=== PATIENT | female | born 1940 | race Two or more races ===

== ENCOUNTER 2018-11-22 08:27 | Emergency (ER) | payer MEDICARE, OTHER ==
[~2018-11-22] VITALS: Ht 157.5 cm; Wt 77.1 kg
[~2018-11-22 08:27] MED LIST: LEVOTHYROXINE
[2018-11-22] MEDS ORDERED: LEVOFLOXACIN 500MG 100 ML IV ONE (09:30)
[2018-11-22 10:24] LABS: Basophils # (auto) 0.1 uL; Basophils % (auto) 0.7 % (0.0-2.0); Eosinophils # (auto) 0 uL; Eosinophils % (auto) 0.4 % (0.0-7.0); Hematocrit 38.7 % (36.0-46.0); Hemoglobin 12.7 g/dL (12.2-16.2); Lymphocytes # (auto) 0.9 uL; Lymphocytes % (auto) 11.1 % (10.0-50.0); Mean Corpuscular Hemoglobin 29.8 pg (28.0-32.0); Mean Corpuscular Hgb Conc. 32.8 g/dL (32.0-36.0); Mean Corpuscular Volume 90.8 fL (80.0-100.0); Monocytes # (auto) 0.7 uL; Monocytes % (auto) 8.5 % (0.0-12.0); Neutrophils # (auto) 6.5 uL; Neutrophils % (auto) 79.3 % (37.0-80.0); Platelet Count (auto) 289 10^3/uL (140-450); Red Blood Cells 4.26 10^6/uL (4.0-5.20); Red Cell Distribution Width 14.8 % (11.8-14.3); White Blood Cell 8.3 10^3/uL (4.4-10.8)
[2018-11-22 10:44] LABS: Alanine Aminotransferase 20 U/L (13-56); Albumin 3.1 g/dL (3.4-5.0); Anion Gap 9 (5-15); Aspartate Aminotransferase 20 U/L (15-37); BUN/Creatinine Ratio 15.8; Blood Urea Nitrogen 9 mg/dL (7-18); Calcium 8.1 mg/dL (8.5-10.1); Carbon Dioxide 26 mmol/L (21-32); Chloride 104 mmol/L (98-107); GFR African American 132 mL/min; GFR Non-African American 109 mL/min; Glucose 87 mg/dL (74-106); Magnesium 2.5 mg/dL (1.6-2.6); Potassium 3.7 mmol/L (3.5-5.1); Sodium 139 mmol/L (136-145)
[2018-11-22 10:52] LABS: Alkaline Phosphatase 69 U/L (45-117); Bilirubin, Total 0.3 mg/dL (0.2-1.0); Total Protein 7.3 g/dL (6.4-8.2)
[2018-11-22 12:58] VITALS: BP 122/57
[2018-11-22 12:58] LABS: Urine Bacteria NONE SEEN /hpf (None Seen); Urine Blood Negative /uL (Negative); Urine Specific Gravity 1.008 (1.001-1.035); Urine WBC <1 /hpf (0 - 5)
== END 2018-11-22 13:03 | disposition home or self-care (01) ==
LOC: EDBD 08:27 → ER 08:27
DX: J40 Bronchitis, not specified as acute or chronic (principal); I10 Essential (primary) hypertension; Z90.49 Acquired absence of other specified parts of digestive tract; Z90.710 Acquired absence of both cervix and uterus
CPT/HCPCS: 36415; 71045; 80053; 81001; 83735; 84484; 85025; 87040; 87804; 93005; 94761; 96365; 99284; J1956

== ENCOUNTER 2020-02-14 17:44 | Emergency (ER) | payer OTHER ==
[~2020-02-14] VITALS: Ht 160 cm; Wt 81.6 kg
[2020-02-14 18:23] LABS: Basophils # (auto) 0 10 ^3/uL (0-0.2); Basophils % (auto) 0.9 % (0.0-2.0); Eosinophils # (auto) 0 10 ^3/uL (0-0.8); Eosinophils % (auto) 0.3 % (0.0-7.0); Hematocrit 36.9 % (36.0-46.0); Hemoglobin 12.4 g/dL (12.2-16.2); Lymphocytes # (auto) 1.4 10 ^3/uL (0.4-5.4); Mean Corpuscular Hgb Conc. 33.6 g/dL (32.0-36.0); Mean Corpuscular Volume 89.5 fL (80.0-100.0); Monocytes # (auto) 0.4 10 ^3/uL (0-1.3); Neutrophils # (auto) 3.5 10 ^3/uL (1.6-8.6); Neutrophils % (auto) 64.8 % (37.0-80.0); Platelet Count (auto) 300 10^3/uL (140-450); Red Blood Cells 4.12 10^6/uL (4.0-5.20); Red Cell Distribution Width 14.6 % (11.8-14.3); White Blood Cell 5.4 10^3/uL (4.4-10.8)
[2020-02-14] MEDS ORDERED: SODIUM CHLORIDE 0.9% 1,000 ML IV ONE (18:30)
[2020-02-14] MEDS ORDERED: dilTIAZem 25 MG/5 ML VIAL IV ONE (18:30)
[2020-02-14 18:35] LABS: INR 1.05 (0.9-1.15); Partial Thromboplastin Time 28.2 sec (23.64-32.05)
[2020-02-14 18:44] LABS: Alanine Aminotransferase 24 U/L (13-56); Albumin 3.3 g/dL (3.4-5.0); Anion Gap 6 (5-15); Blood Urea Nitrogen 9 mg/dL (7-18); Calcium 8.6 mg/dL (8.5-10.1); Carbon Dioxide 25 mmol/L (21-32); Chloride 97 mmol/L (98-107); GFR African American 143 mL/min; GFR Non-African American 118 mL/min; Glucose 145 mg/dL (74-106); Magnesium 2.3 mg/dL (1.6-2.6); Potassium 3.7 mmol/L (3.5-5.1); Sodium 128 mmol/L (136-145)
[2020-02-14 18:49] LABS: Alkaline Phosphatase 63 U/L (45-117); Aspartate Aminotransferase 18 U/L (15-37); Bilirubin, Total 0.2 mg/dL (0.2-1.0); Total Protein 7.5 g/dL (6.4-8.2)
[2020-02-15 01:05] VITALS: BP 157/71
== END 2020-02-15 02:15 | disposition home or self-care (01) ==
LOC: EDBD 17:44 → EDUNIT# 17:44 → ER 17:44
DX: I48.92 Unspecified atrial flutter (principal); E87.1 Hypo-osmolality and hyponatremia; I10 Essential (primary) hypertension
CPT/HCPCS: 36415; 71045; 80053; 83735; 83880; 84443; 84484; 85025; 85610; 85730; 93005

== ENCOUNTER 2021-05-28 17:51 | Emergency (ER) | payer OTHER ==
[~2021-05-28] VITALS: Ht 152.4 cm; Wt 68.0 kg
[2021-05-28 19:25] VITALS: BP 184/88
[2021-05-28 19:51] LABS: Urine Bacteria FEW /hpf (None Seen); Urine Blood Negative /uL (Negative); Urine Specific Gravity 1.011 (1.001-1.035); Urine WBC 2 /hpf (0 - 5)
== END 2021-05-28 20:14 | disposition home or self-care (01) ==
LOC: ER 17:51 → MERGE 17:51 → EDSEX 17:51 → EDBD 17:51 → ER 20:14
DX: N39.0 Urinary tract infection, site not specified (principal); M54.5 Low back pain; Z88.0 Allergy status to penicillin; Z88.5 Allergy status to narcotic agent
CPT/HCPCS: 81001

== ENCOUNTER 2021-05-30 18:25 | Inpatient (IN) | payer OTHER ==
[~2021-05-30] VITALS: Ht 160 cm; Wt 71.0 kg
[2021-05-30 19:55] LABS: Basophils # (auto) 0.1 10 ^3/uL (0-0.2); Basophils % (auto) 0.6 % (0.0-2.0); Eosinophils # (auto) 0 10 ^3/uL (0-0.8); Eosinophils % (auto) 0.1 % (0.0-7.0); Hematocrit 36.6 % (36.0-46.0); Hemoglobin 12.7 g/dL (12.2-16.2); Lymphocytes # (auto) 1.5 10 ^3/uL (0.4-5.4); Lymphocytes % (auto) 11.8 % (10.0-50.0); Mean Corpuscular Hemoglobin 31.4 pg (28.0-32.0); Mean Corpuscular Hgb Conc. 34.7 g/dL (32.0-36.0); Mean Corpuscular Volume 90.5 fL (80.0-100.0); Monocytes # (auto) 0.8 10 ^3/uL (0-1.3); Monocytes % (auto) 6.2 % (0.0-12.0); Neutrophils # (auto) 10.7 10 ^3/uL (1.6-8.6); Neutrophils % (auto) 81.3 % (37.0-80.0); Red Blood Cells 4.05 10^6/uL (4.0-5.20); Red Cell Distribution Width 16.1 % (11.8-14.3); White Blood Cell 13.1 10^3/uL (4.4-10.8)
[2021-05-30 20:13] LABS: Albumin 3.2 g/dL (3.4-5.0); Anion Gap 13 (5-15); BUN/Creatinine Ratio 11.1; Blood Urea Nitrogen 5 mg/dL (7-18); Calcium 8.2 mg/dL (8.5-10.1); Carbon Dioxide 17 mmol/L (21-32); Chloride 87 mmol/L (98-107); GFR African American 172 mL/min; GFR Non-African American 142 mL/min; Glucose 109 mg/dL (74-106); Lipase 104 U/L (73-393); Potassium 3.5 mmol/L (3.5-5.1)
[2021-05-30 20:22] LABS: Alanine Aminotransferase 25 U/L (13-56); Alkaline Phosphatase 70 U/L (45-117); Aspartate Aminotransferase 20 U/L (15-37); Bilirubin, Total 0.4 mg/dL (0.2-1.0); Total Protein 7.1 g/dL (6.4-8.2)
[2021-05-30 20:44] LABS: Sodium 117 mmol/L (136-145)
[2021-05-30] MEDS ORDERED: SODIUM CHLORIDE 0.9% 1,000 ML IV ONE (21:00)
[2021-05-30] MEDS ORDERED: SODIUM CHL 3% 500 ML IV ONE ×2 (21:30→23:15)
[2021-05-30] MEDS ORDERED: IOHEXOL 300 MG/ML 100ML BOTTLE IJ ONE (22:00)
[2021-05-30 22:40] LABS: Magnesium 2.2 mg/dL (1.6-2.6); Phosphorus 2.7 mg/dL (2.5-4.90)
[2021-05-30] MEDS ORDERED: metroNIDAZOLE 500MG/100ML 100 ML IV ONE (23:15)
[2021-05-30] MEDS ORDERED: ONDANSETRON HCL 4 MG/2 ML VIAL IV PRN (23:15)
[2021-05-30] MEDS ORDERED: TEMAZEPAM 15 MG CAP PO PRN (23:15)
[2021-05-30] MEDS ORDERED: PANTOPRAZOLE 40 MG TAB PO ONE (23:15)
[2021-05-31 04:28] LABS: Basophils # (auto) 0 10 ^3/uL (0-0.2); Basophils % (auto) 0.2 % (0.0-2.0); Eosinophils # (auto) 0 10 ^3/uL (0-0.8); Eosinophils % (auto) 0.2 % (0.0-7.0); Hematocrit 34.8 % (36.0-46.0); Hemoglobin 12.5 g/dL (12.2-16.2); Lymphocytes # (auto) 1.4 10 ^3/uL (0.4-5.4); Lymphocytes % (auto) 11.5 % (10.0-50.0); Mean Corpuscular Hemoglobin 32.2 pg (28.0-32.0); Mean Corpuscular Hgb Conc. 35.8 g/dL (32.0-36.0); Mean Corpuscular Volume 89.9 fL (80.0-100.0); Monocytes # (auto) 0.9 10 ^3/uL (0-1.3); Neutrophils # (auto) 9.9 10 ^3/uL (1.6-8.6); Neutrophils % (auto) 81.1 % (37.0-80.0); Red Blood Cells 3.87 10^6/uL (4.0-5.20); Red Cell Distribution Width 15.7 % (11.8-14.3); White Blood Cell 12.2 10^3/uL (4.4-10.8)
[2021-05-31 04:41] LABS: Potassium 3.3 mmol/L (3.5-5.1)
[2021-05-31 04:48] LABS: Calcium 7.9 mg/dL (8.5-10.1)
[2021-05-31] MEDS: metroNIDAZOLE 500MG/100ML 100 ML IV SCH ×3 (06:10→21:26)
[2021-05-31] MEDS: LEVOTHYROXINE SODIUM 88 MCG TAB PO SCH (06:39)
[2021-05-31] MEDS: levoFLOXacin 500MG 100 ML IV SCH (09:47)
[2021-05-31] MEDS: PANTOPRAZOLE 40 MG TAB PO SCH (10:29)
[2021-05-31 13:27] LABS: BUN/Creatinine Ratio 7.4; Potassium 3.4 mmol/L (3.5-5.1)
[2021-05-31] MEDS ORDERED: D5W 5% 500 ML IV ONE (15:00)
[2021-05-31] MEDS: ACETAMINOPHEN 325 MG TAB PO PRN (16:26)
[2021-05-31 16:55] VITALS: BP 123/64
[2021-05-31 17:00] VITALS: BP 123/64
[2021-05-31] MEDS ORDERED: LEV100T PO (19:30)
[2021-05-31 20:00] VITALS: BP 130/66
[2021-05-31] MEDS: DOCUSATE SOD 100 MG CAP PO SCH (21:25)
[2021-05-31 22:00] VITALS: BP 130/66
[2021-06-01 05:00] VITALS: BP 131/71
[2021-06-01 05:24] LABS: Basophils # (auto) 0.1 10 ^3/uL (0-0.2); Eosinophils # (auto) 0 10 ^3/uL (0-0.8); Eosinophils % (auto) 0.7 % (0.0-7.0); Hemoglobin 12.6 g/dL (12.2-16.2); Lymphocytes # (auto) 1.7 10 ^3/uL (0.4-5.4); Lymphocytes % (auto) 23.2 % (10.0-50.0); Mean Corpuscular Hemoglobin 31.7 pg (28.0-32.0); Mean Corpuscular Volume 90.5 fL (80.0-100.0); Monocytes # (auto) 0.6 10 ^3/uL (0-1.3); Monocytes % (auto) 7.8 % (0.0-12.0); Neutrophils # (auto) 4.9 10 ^3/uL (1.6-8.6); Neutrophils % (auto) 67.3 % (37.0-80.0); Nucleated Red Blood Cells % 0.1 %; Red Blood Cells 3.98 10^6/uL (4.0-5.20); Red Cell Distribution Width 15.9 % (11.8-14.3); White Blood Cell 7.2 10^3/uL (4.4-10.8)
[2021-06-01 05:29] LABS: BUN/Creatinine Ratio 5.6; Calcium 8.3 mg/dL (8.5-10.1); Potassium 3.6 mmol/L (3.5-5.1)
[2021-06-01] MEDS: metroNIDAZOLE 500MG/100ML 100 ML IV SCH ×3 (05:54→22:34)
[2021-06-01 05:55] LABS: Urine Bacteria NONE SEEN /hpf (None Seen); Urine Blood Negative /uL (Negative); Urine Specific Gravity 1.004 (1.001-1.035); Urine WBC 1 /hpf (0 - 5)
[2021-06-01] MEDS: LEVOTHYROXINE SODIUM 88 MCG TAB PO SCH (06:10)
[2021-06-01 08:15] VITALS: BP 116/66
[2021-06-01 09:00] VITALS: BP 116/66
[2021-06-01] MEDS: DOCUSATE SOD 100 MG CAP PO SCH ×2 (10:29→22:34)
[2021-06-01] MEDS: PANTOPRAZOLE 40 MG TAB PO SCH (10:29)
[2021-06-01] MEDS: levoFLOXacin 500MG 100 ML IV SCH (10:29)
[2021-06-01 13:00] VITALS: BP 127/63
[2021-06-01 17:00] VITALS: BP 140/75
[2021-06-01] MEDS ORDERED: MAGNESIUM CITRATE SOLUTION 300 ML BTL PO ONE (21:45)
[2021-06-01] MEDS ORDERED: GOLYTELY 4L KIT PO ONE (21:45)
[2021-06-01 23:14] VITALS: BP 101/81
[2021-06-02 05:00] VITALS: BP 148/75
[2021-06-02 05:47] LABS: Basophils # (auto) 0.1 10 ^3/uL (0-0.2); Basophils % (auto) 0.9 % (0.0-2.0); Eosinophils # (auto) 0 10 ^3/uL (0-0.8); Eosinophils % (auto) 0.6 % (0.0-7.0); Hematocrit 35.5 % (36.0-46.0); Hemoglobin 12.2 g/dL (12.2-16.2); Lymphocytes # (auto) 1.8 10 ^3/uL (0.4-5.4); Lymphocytes % (auto) 24.6 % (10.0-50.0); Mean Corpuscular Hemoglobin 31.5 pg (28.0-32.0); Mean Corpuscular Hgb Conc. 34.3 g/dL (32.0-36.0); Mean Corpuscular Volume 91.7 fL (80.0-100.0); Monocytes # (auto) 0.6 10 ^3/uL (0-1.3); Monocytes % (auto) 7.8 % (0.0-12.0); Neutrophils # (auto) 4.8 10 ^3/uL (1.6-8.6); Neutrophils % (auto) 66.1 % (37.0-80.0); Nucleated Red Blood Cells % 0.1 %; Red Blood Cells 3.87 10^6/uL (4.0-5.20); Red Cell Distribution Width 16.2 % (11.8-14.3); White Blood Cell 7.2 10^3/uL (4.4-10.8)
[2021-06-02 05:52] LABS: INR 0.97 (0.9-1.15); Partial Thromboplastin Time 27.3 sec (23.6-33.0)
[2021-06-02 05:56] LABS: BUN/Creatinine Ratio 9.3; Calcium 8.2 mg/dL (8.5-10.1); Potassium 3.3 mmol/L (3.5-5.1)
[2021-06-02] MEDS ORDERED: MAGNESIUM CITRATE SOLUTION 300 ML BTL PO ONE (06:00)
[2021-06-02] MEDS ORDERED: GOLYTELY 4L KIT PO ONE (06:00)
[2021-06-02] MEDS: metroNIDAZOLE 500MG/100ML 100 ML IV SCH ×3 (06:39→21:49)
[2021-06-02] MEDS: LEVOTHYROXINE SODIUM 88 MCG TAB PO SCH (06:40)
[2021-06-02 08:00] VITALS: BP 138/74
[2021-06-02 08:15] VITALS: BP 138/76
[2021-06-02] MEDS: PANTOPRAZOLE 40 MG TAB PO SCH (10:09)
[2021-06-02] MEDS: levoFLOXacin 500MG 100 ML IV SCH (10:09)
[2021-06-02] MEDS: DOCUSATE SOD 100 MG CAP PO SCH ×2 (10:09→21:48)
[2021-06-02 12:00] VITALS: BP 146/75
[2021-06-02] MEDS ORDERED: POTASSIUM CHLORIDE 40 MEQ, LIDOCAINE 1% (LOCAL ANESTH.) 4 ML in SODIUM CHL 0.9% 250 ML IV ONE (12:15)
[2021-06-02] MEDS ORDERED: MIDAZOLAM HCL 2MG/2ML 2ml VIAL (1mg/ml) ONE (16:54)
[2021-06-02] MEDS ORDERED: fentaNYL CITRATE 100 MCG/2 ML VL ONE (16:54)
[2021-06-02] MEDS ORDERED: PROPOFOL 10 MG/ML 20 ML IV ONE (17:04)
[2021-06-02] MEDS ORDERED: ONDANSETRON HCL 4 MG/2 ML VIAL ONE (17:14)
[2021-06-02] MEDS ORDERED: ONDANSETRON HCL 4 MG/2 ML VIAL IV PRN (17:30)
[2021-06-02] MEDS: ACETAMINOPHEN 325 MG TAB PO PRN (21:32)
[2021-06-02 23:17] VITALS: BP 132/63
[2021-06-03 05:56] VITALS: BP 97/61
[2021-06-03] MEDS: metroNIDAZOLE 500MG/100ML 100 ML IV SCH ×2 (06:13→14:03)
[2021-06-03] MEDS: LEVOTHYROXINE SODIUM 88 MCG TAB PO SCH (06:25)
[2021-06-03 08:15] VITALS: BP 137/71
[2021-06-03 09:00] VITALS: BP 157/71
[2021-06-03] MEDS: PANTOPRAZOLE 40 MG TAB PO SCH (10:33)
[2021-06-03] MEDS: DOCUSATE SOD 100 MG CAP PO SCH (10:33)
[2021-06-03] MEDS: levoFLOXacin 500MG 100 ML IV SCH (10:33)
[2021-06-03 13:00] VITALS: BP 157/78
== END 2021-06-03 16:09 | disposition home health service (06) | DRG 392 ==
LOC: ER 18:26 → MERGE 23:03 → OVERFLOW 23:03 → WEST WING 05-31 14:34
PROVIDERS: ADMIT Nurse Practitioner; ATTEND Internal Medicine
PROC: 0DBN8ZZ Excision of Sigmoid Colon, Via Natural or Artificial Opening Endoscopic (ICD-10-PCS; 2021-06-02)
PROC: 0DBH8ZZ Excision of Cecum, Via Natural or Artificial Opening Endoscopic (ICD-10-PCS; principal; 2021-06-02 16:51)
DX: K52.9 Noninfective gastroenteritis and colitis, unspecified (principal); E44.0 Moderate protein-calorie malnutrition; E87.1 Hypo-osmolality and hyponatremia; E86.1 Hypovolemia; K59.00 Constipation, unspecified; K63.5 Polyp of colon; K64.8 Other hemorrhoids; E03.9 Hypothyroidism, unspecified; M54.5 Low back pain; M62.89 Other specified disorders of muscle; Z20.822 Contact with and (suspected) exposure to COVID-19; E87.6 Hypokalemia; Z90.710 Acquired absence of both cervix and uterus; Z88.5 Allergy status to narcotic agent; Z88.0 Allergy status to penicillin; Z90.49 Acquired absence of other specified parts of digestive tract; Z68.27 Body mass index [BMI] 27.0-27.9, adult; D72.829 Elevated white blood cell count, unspecified
CPT/HCPCS: 36415; 71045; 74177; 80048; 80053; 81001; 82378; 83690; 83735; 83930; 83935; 84100; 84295; 84443; 84484; 85025; 85610; 85730; 87426; 93005; 96361; 96365; 96366; 96368; G0378; J1956; J2001; J2250; J2405; J2704; J3490

== ENCOUNTER 2021-07-24 20:42 | Emergency (ER) | payer OTHER ==
[~2021-07-24 20:42] MED LIST changes: +LEV100T PO; -LEVOTHYROXINE
[2021-07-24 21:35] LABS: Basophils # (auto) 0 10 ^3/uL (0-0.2); Basophils % (auto) 0.4 % (0.0-2.0); Eosinophils # (auto) 0 10 ^3/uL (0-0.8); Eosinophils % (auto) 0.2 % (0.0-7.0); Hemoglobin 12.3 g/dL (12.2-16.2); Lymphocytes # (auto) 1.8 10 ^3/uL (0.4-5.4); Lymphocytes % (auto) 22.9 % (10.0-50.0); Mean Corpuscular Hemoglobin 31.8 pg (28.0-32.0); Mean Corpuscular Hgb Conc. 34.2 g/dL (32.0-36.0); Mean Corpuscular Volume 93.1 fL (80.0-100.0); Monocytes # (auto) 0.7 10 ^3/uL (0-1.3); Monocytes % (auto) 8.5 % (0.0-12.0); Neutrophils # (auto) 5.2 10 ^3/uL (1.6-8.6); Nucleated Red Blood Cells % 0.1 %; Red Blood Cells 3.87 10^6/uL (4.0-5.20); Red Cell Distribution Width 15.1 % (11.8-14.3); White Blood Cell 7.7 10^3/uL (4.4-10.8)
[2021-07-24 21:55] LABS: Albumin 3.1 g/dL (3.4-5.0); Calcium 8.4 mg/dL (8.5-10.1); Potassium 3.4 mmol/L (3.5-5.1)
[2021-07-24 21:58] LABS: BUN/Creatinine Ratio 16.7; Bilirubin, Total 0.3 mg/dL (0.2-1.0)
[2021-07-25 01:27] VITALS: BP 154/79
== END 2021-07-25 01:41 | disposition home or self-care (01) ==
LOC: EDBD 20:42 → ER 20:47
DX: K59.00 Constipation, unspecified (principal); I10 Essential (primary) hypertension; Z90.49 Acquired absence of other specified parts of digestive tract; Z90.710 Acquired absence of both cervix and uterus; Z88.0 Allergy status to penicillin; Z88.6 Allergy status to analgesic agent
CPT/HCPCS: 36415; 74176; 80053; 83690; 85025